=== PATIENT | female | born 1965 | race Caucasian/White ===

== ENCOUNTER 2019-05-30 12:11 | Emergency (ER) | payer MEDICARE, MEDICAID, SELFPAY ==
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
[2019-05-30 12:12] VITALS: BP 137/86; PULSE 84; RESP 16; TEMP 36.5; O2SAT 97; BMI 32.9
[2019-05-30 13:02] LABS: Add Manual Diff / Slide Review NO; Basophils Absolute Auto 100 /uL (0-100); Basophils Percent Auto 0.9 % (0-2); Eosinophils Absolute Auto 200 /uL (0-450); Eosinophils Percent Auto 1.1 % (2-4); Hematocrit 37.6 % (36-46); Hemoglobin 12.1 g/dL (12.0-16.0); Lymphocytes Absolute Auto 3600 /uL (1100-4500); Lymphocytes Percent Auto 24.4 % (25-40); Mean Corpuscular HGB Conc 32.1 % (30-36); Mean Corpuscular Hemoglobin 27.4 PG (26-34); Mean Corpuscular Volume 85.3 fL (80-100); Monocytes Absolute Auto 2000 /uL (0-900); Monocytes Percent Auto 13.7 % (3-14); Neutrophils Absolute Auto 9000 /uL (1500-7000); Neutrophils Percent Auto 59.9 % (50-75); Platelet Count 298 X10^3/uL (150-400); Red Blood Cell Count 4.41 X10^6/uL (4.0-5.2); Red Cell Distribution Width 18.8 % (11.6-14.8)
[2019-05-30 13:12] LABS: Alanine Aminotransferase 18 IU/L (<35); Albumin 4.1 g/dL (3.5-5.0); Albumin Globulin Ratio 1.5 (1.0-2.8); Alkaline Phosphatase 68 U/L (38-126); Aspartate Aminotransferase 29 IU/L (14-36); Bilirubin Total 0.3 mg/dL (0.2-1.3); Blood Urea Nitrogen 15 mg/dL (7-17); Calcium 8.8 mg/dL (8.4-10.2); Carbon Dioxide 27 mmol/L (22-32); Chloride 106 mmol/L (98-107); Estimated Glomerular Filt Rate > 60.0 mL/min (>60); Ethanol (ETOH) < 10 mg/dL; Globulin 2.7 g/dL (1.7-4.1); Glucose 83 mg/dL (70-100); HEMOLYSIS < 15 (0-50); Potassium 3.9 mmol/L (3.4-5.1); Sodium 142 mmol/L (137-145); Total Protein 6.8 g/dL (6.3-8.2)
[2019-05-30 13:24] LABS: Bacteria Urine None Seen
[2019-05-30 13:28] LABS: Appearance Urine UA CLEAR; Bilirubin Urine UA NEGATIVE (NEGATIVE); Color Urine UA YELLOW; Glucose Urine UA NEGATIVE (Negative); Ketones Urine UA NEGATIVE (NEGATIVE); Leukocyte Esterase Urine UA NEGATIVE (NEGATIVE); Nitrite Urine UA NEGATIVE (Negative); Occult Blood Urine UA NEGATIVE (Negative); Protein Urine UA TRACE (Negative); Urobilinogen Urine UA 0.2 E.U./dL (0.2)
[2019-05-30 13:35] LABS: pH Urine UA 6.5 (4.5-8.0)
[2019-05-30 13:36] LABS: UR Morphine/Opiate cutoff 300 Negative (Negative); Ur Creatinine Normal (Normal); Ur Specific Gravity Normal (Normal); Urine Amphetamines Negative (Negative); Urine Barbiturates Negative (Negative); Urine Benzodiazepines Negative (Negative); Urine Cocaine Negative (Negative); Urine MDMA Negative (Negative); Urine Methadone Negative (Negative); Urine Methamphetamines Negative (Negative); Urine Oxycodone Negative (Negative); Urine Phencyclidine Negative (Negative); Urine Tetrahydrocannabinol Negative (Negative); Urine Tricyclic Antidepressant Negative (Negative); Urine pH Normal (Normal)
[2019-05-30 13:40] LABS: RBC Urine 0-1/HPF (0-5/HPF); Squamous Epithelial Cell Urine 1-5 /HPF (0-5/HPF); WBC Urine 0-1/HPF (0-5/HPF)
[2019-05-30 13:41] LABS: Culture Indicated Urine Cult Not Indicated; Mucus Urine 1+ (Negative)
[2019-05-30] MEDS: OLANZapine ODT 10 MG TAB PO (13:44)
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
[2019-05-30 13:48] LABS: Thyroid Stimulating Hormone 4.13 uIU/mL (0.47-4.68)
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
[2019-05-30 14:38] VITALS: BP 90/43; PULSE 90; RESP 16; TEMP 37.1
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
[2019-05-30] MEDS: LORazepam 2 MG/ML INJ 1 MG IM (16:22)
[2019-05-30 18:00] VITALS: BP 97/62; PULSE 68; RESP 15; O2SAT 95
--- NOTE | 2019-05-30 18:50 | PC.NURSE ---
[facility] in [place] called back after reviewing chart and said they will not accept her due to her behavior from her last visit to them
[2019-05-30 18:59] VITALS: BP 116/84; PULSE 69; O2SAT 94
--- NOTE | 2019-05-30 20:33 | PC.NURSE ---
Patient is resting on stretcher with eyes closed. Door is open and she is in direct visualization of nurse's station.
[2019-05-30 21:04] VITALS: BP 101/62; PULSE 66; O2SAT 95
[2019-05-30 22:47] VITALS: BP 99/59; PULSE 66; O2SAT 94
--- NOTE | 2019-05-30 23:14 | PC.NURSE ---
Patient is resting on stretcher with eyes closed. Continuous pulse ox and blood pressure monitoring on. Door is open and patient is in direct visualization of nursing station.
[2019-05-31 00:23] VITALS: BP 113/67; PULSE 67; O2SAT 90
[2019-05-31 02:24] VITALS: BP 107/57; PULSE 73; O2SAT 95
[2019-05-31 03:09] VITALS: BP 105/69; PULSE 66; RESP 15; O2SAT 92
--- NOTE | 2019-05-31 04:33 | PC.NURSE ---
Pt c/o sore bottom, states that she has a cream at home for it. Dr Ritchie at bedside, gluteal cleft with red rash. Skin protectant applied. When asked, pt stated that she still has thoughts of self-harm and if she left the hospital she would light herself on fire. Pt states that she won't hurt herself while in hospital, has been calm, cooperative, sleeping most of the night. quality assurance coordinator phoned to ask for a sitter for dayshift.
[2019-05-31 07:24] VITALS: BP 103/61; PULSE 70; RESP 14; TEMP 36.8; O2SAT 95
[2019-05-31] MEDS: LORazepam 0.5 MG TABLET 1 MG PO (09:13)
[2019-05-31] MEDS: DIVALPROEX DR 250 MG TABLET 750 MG PO ×2 (09:13→20:46)
--- NOTE | 2019-05-31 09:20 | PC.NURSE ---
Addendum entered by Annie Wade R.N. 05/31/19 15:42: Patient up to bedside commode without home care assistant. Patient ambulating in [place], gait is steady and independent. Patient states walking relieves her anxiety and the rash pain on her buttocks. Patient requesting diazepam to relieve her anxiety. Patient is anxious regarding placement and future. Dr. pearson order and medication given. Patient currently resting with her eyes closed. Addendum entered by Annie Wade R.N. 05/31/19 14:27: Margarette, patient's care trainer is sitting in room with patient. Addendum entered by Annie Wade R.N. 05/31/19 12:18: Patient up to bedside commode independently, ambulating in the halls. Patient performed noman care independently, patient recognizes when she is incontinent and requests a brief to change herself. Patient c/o being tired but unable to sleep. Patient verbalizes she is anxious, and would harm herself if the voices told her to do so. Patient is anxious about placement, wants to go somewhere she is safe. Will continue to follow Addendum entered by Annie Wade R.N. 05/31/19 10:32: Patient up to bedside commode. Had loose bowel movement, incontinent of urine in the brief. Brief changed, noman care given. Noted rash on upper crease of buttocks. Barrier cream applied. Patient ambulated in hallway with this nurse. Gait steady, patient states the walk helps ease anxiety. Patient incontinent of stool during walk. Patient changed and back to bed. C/O of headache. Will follow up, refer to MAR. Patient less restless, resting in bed with eyes closed at this time. Original Note: Patient is restless in bed. c/o buttocks hurting, applied cream to excoriated area. Offered patient bedside commode and patient refused. Patient denies pain elsewhere.
[2019-05-31] MEDS: ACETAMINOPHEN 325 MG TABLET 975 MG PO (10:39)
[2019-05-31 11:00] VITALS: BP 100/53; PULSE 73; RESP 18; TEMP 36.6; O2SAT 91
[2019-05-31] MEDS: OLANZapine ODT 10 MG TAB PO ×2 (12:06→20:16)
[2019-05-31] MEDS: ONDANSETRON 4 MG ODT SL (14:24)
[2019-05-31] MEDS: KETOROLAC 60 MG/2 ML VIAL 30 MG IM (14:28)
--- NOTE | 2019-05-31 15:04 | CM.SWNOTE ---
Addendum entered by Marisol Suresh R.N. 05/31/19 19:30: Original Note: VETERINARY ANATOMIST Note continued: Received referral this AM to continue d/c planning on this 53yr female that came to [facility] ED with complaints of suicidal ideation. Spoke with ED staff this AM and they continue to report that patient has complaints of SI. VETERINARY ANATOMIST placed call to [facility]/[place] counselor Adeolaarvind TrinidadHuffman ph# [phone] re: d/c plan. Margarette reports that she will come to [facility] to meet with patient and offer assistance with placement. Reviewed previous VETERINARY ANATOMIST notes. Placed call to [facility] to check on whether or not they can accept. Received return phone call from Subha at [facility] and they report that they cannot accommodate. Other facilities that have declined are [facility] and [facility]. Faxed clinical to [facility] as well have not heard back. Placed call to [facility] ph#[phone] spoke with Kelsey. She reports that they do have female voluntary bed. All clinical faxed. In addition, patient's counselor/Margarette spoke with [facility] re: patient's history. Patient resides at [facility] in [place] they are assisted living. Per Margarette, patient can return there if needed but the preference would be placement secondary to patient's continued SI. ED staff aware and updated. Margarette hopes to get patient moved to AF type setting in the future. Patient has [facility] and CM is [facility]. RN/CM Marisol updated on the above. Currently awaiting call back from [facility] re: acceptance. If patient declined CM team to continue to attempt inpatient psychiatric placement. P: Pending. DYAN Gu VETERINARY ANATOMIST - Paper Gluing Operator Assessment VETERINARY ANATOMIST - Paper Gluing Operator Assessment Start: 05/30/19 14:34 Freq: Status: Active Protocol: Document 05/30/19 14:34 BF (Rec: 05/30/19 14:54 BF [id number]) VETERINARY ANATOMIST/Paper Gluing Operator Assessment Time Spent with Patient Start date 05/30/19 Visit Start Time 13:40 Total time Care Management spent on 300 minutes patient visit-in minutes Mental Health Screening Include Onset, Duration, Intensity Presenting Problem Patient presents to [facility] with suicidal ideation, self harm, no sleep for 4 days Precipitating Event(s) Patient with history of schizophrenia, 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 Current Behavioral Health Provider(s) Patient is enrolled in [facility], Provider, Ph. # Services and has a counselor who meets with her once a week at her residence but cannot think of counselors name at this time. Psych. Hx Mental Health and Chemical SW called A for MIS check Dependency and pt was previously enrolled in [facility] mental health outpt, has a hx of Crisis Respite Bed once in 2017 and a hx of 18 MEDARDO's from 2011-Aug. Pt does not currently have any LRO's or crisis alerts. Pt denies any CD abuse or use. Family Hx of Behavioral Abuse Pt states that her family hasn 't talked to her in 10 yrs Psychiatric Hospitalizations (date(s)/ Pt has a long hx of MEDARDO location) placements from 2011-present with 18 placements for stabilization. Pt's most recent placement was voluntary at [facility] a couple weeks ago in April 2019 before discharging back to her Assisted Living facility and outpt provider through [facility]. Support System(s) Pt states that she has not spoken to her family in 10 years but feels supported by staff at her Assisted Living Facility [facility] in [place] and her assigned SW through the [facility] who is working on getting pt set up with an Adult Family Home to best meet her housing needs in a smaller home life setting. School/Work Denies Legal Concerns Legal Matters - Outstanding Issues Denies Mental Status Orientation (Person/Place/Time) Pt seems to be oriented x2 but states she has been awake for 4 days and is having some difficulty recalling timelines . Affect Pt is quite tearful throughout conversation and appears to be exhausted. 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 Pt states that sometimes they are more quiet and she can manage taking appropriate care for herself and other times they are overwhelming. Thought Processes (Pmlpwja-Tfuwzdau-Thcg Pt appears disorganized in her Ukegsqdr-Exaktwxb-Pisliqbymc- thoughts but able to Egtzlarhuufcse-Etezalz-Tbqyyfznnznc- participate in discussion and Thought Blocking) [facility] has had the most relief for her in managing the voices and remaining safe with sleep. Speech (Pefabj-Mzsa-Rbmeavv-Rapid-Soft- Speech is slow and soft Loud-Pressured) Motor (Atxshm-Xcssqxgfa-Wpxc-Other) Motor appears to be slow Insight (Present-Partially Present- Insight appears to be present Impaired) and pt aware of her safety risk with ongoing voices telling her to be harmful to herself and seeking voluntary in tx Judgement (Intact-Impaired) Intact Impulse Control (Adequate-Impaired) Adequate Memory (Ayjtqsbcx-Lnraxb-Arvghu, Memory is somewhat impaired Impaired-Intact) from lack of sleep Behavior (Appropriate-Inappropriate) Behavior appears to be appropriate and emotional and pt seeking treatment for stabilization and relief of symptoms. Risk Assessment Suicidal Ideation (Plan) Yes Homicidal Ideation (Plan) No: Pt denies that the voices are ever homicidal in nature Comment Pt states that she feels suicidal and has attempted some self harm of burning her skin and taking extra pills at the constant urging of the voices in her head. Pt denies any visual disturbances. Intervention Intervention VETERINARY ANATOMIST met bedside with pt in the ER room 7 and pt was laying down and tearful through the conversation. Pt was able to identify hearing voices that urge self harm and suicidal plans but that she is [facility]. Pt believes that she has been taking her medications consistently but unsure due to her lack of sleep if her voices have kept her from taking meds like they have kept her from eating/drinking/ sleeping the past 4 days. Pt has been able to identify moments when she has been successful at maintaining safely in the community and feels well established with her state Assisted Living Housekeeper and her [facility] counselor she sees once a week. Pt unable to currently plan for safety to return to the community and her living situation. Plan RA Plan Due to pt's ongoing auditory voices that urge self harm and suicidal plans and pt's inability to make a safe plan to return back to the community, pt could benefit [facility] for stabilization and med management of her mental health diagnoses.
[2019-05-31] MEDS: diazePAM 5 MG TABLET PO (15:25)
[2019-05-31 15:47] VITALS: BP 107/48; PULSE 70; RESP 16; TEMP 36.8; O2SAT 91
--- NOTE | 2019-05-31 16:55 | PC.NURSE ---
INDUSTRIAL SEAMSTRESS/SOLID FIBER PASTER OPERATOR Note: Patient complained of buttocks hurting. I applied barrier cream to buttocks. Pt. has sores and some redness on both butt cheeks. AHSAN Estevez Notified.
--- NOTE | 2019-05-31 18:10 | PC.NURSE ---
Patient began vomiting after eating her dinner and so changed her bedding and scrubs
--- NOTE | 2019-05-31 18:12 | CM.SWNOTE ---
Addendum entered by Marisol Suresh R.N. 05/31/19 19:30: [facility] Contacted CM/RN to let us know they can not accept patient. CM/Rn called 2 more times to [facility] and no answer/ phone disconnected messaged. CM will attempt again prior to leaving for the night. CM/RN called and gave [facility] EDs number to f/u with them since CM leaves at 1999. will follow up in the AM with [facility], and [facility] if no bed comes through tonight. CM/ RN contacted [facility] and left a messaged with there charge nurse for possible admission. Charge nurse called CM/RN back and they do not currently have any beds but to call back tomorrow for possible openings if a bed is still needed. CM/Rn will pass on the information. CM/RN updated the ED tracker board that CM/RN was leaving but to contact crisis and dispatch DCR if patient starts causing problems or attempts to leave per [facility] MONTOYA. CM also talked with ED staff and let them know about the calls that were placed and that [facility] knows and will f/u if patient doesn't receive an inpatient bed tonight. Marisol Suresh RN. Addendum entered by Marisol Suresh R.N. 05/31/19 18:28: CM/RN called [facility] at [phone]. They do not currently have a bed available but do have two female beds opening up tomorrow morning and if we still need a bed to call them in the AM. CM/RN will pass on to for tomorrow if CM/RN is not able to find placement tonight before end of shift. Marisol Suresh RN. Original Note: Cm/RN continued to work on voluntary placement for patient. CM called and left two voice messaged with [facility] to see if they will accept patient. CM/RN have not heard back. CM/RN called [facility] to check on clinicals faxed earlier today and check on possible placement. [facility] stated they did not received clinicals today for the patient. CM/RN resent clinicals and called [facility] intake to verify they received them. [facility] received clinicals and are currently reviewing them. CM/RN called [facility] [phone] and they currently have beds. CM/ RN sent clinicals and they are currently reviewing them as well. CM/RN contacted [facility] [phone] and they currently do not have a bed available for the patient. CM/RN will continue to follow closely for placement options. Marisol Suresh RN
--- NOTE | 2019-05-31 18:45 | PC.NURSE ---
pt feels nauseated. vomitted her meal. states she is nervous and anxious and vomits when this happens. md aware. emotional support.
[2019-05-31] MEDS: clonazePAM 0.5 MG TABLET 1 MG PO (18:53)
[2019-05-31] MEDS: TRAZODONE 100 MG TABLET 200 MG PO (20:16)
--- NOTE | 2019-05-31 20:22 | PC.NURSE ---
pt is growing a little agitated, she wants to leave but is able to be re directed, The nurse neeraj walk her through the department.
--- NOTE | 2019-05-31 20:25 | PC.NURSE ---
Pt is walking with a nurse. after asking what the plan was the doctor explain that we are still looking for a bed and she will need to spend the night here again.
--- NOTE | 2019-05-31 20:30 | PC.NURSE ---
Pt requested a shower, Ana is setting it up for her.
--- NOTE | 2019-05-31 20:32 | PC.NURSE ---
Pt is taking a shower
--- NOTE | 2019-05-31 20:32 | PC.NURSE ---
Obtained patient care. Patient pacing in room, tearful about plan of care. Patient requesting night time meds. Another RN assisting with walking the patient around the department to help her calm down during shift change and obtaining report. Marisol from care management was at bedside discussing bed situation with patient prior to that. Patient easily redirectable and calms down with conversation and comfort from staff
--- NOTE | 2019-05-31 20:48 | PC.NURSE ---
Patinet back from shower i love it patient tucked in for the night. lights dimmed.
--- NOTE | 2019-05-31 21:13 | PC.NURSE ---
Pt finished shower and is laying down
--- NOTE | 2019-05-31 22:06 | PC.NURSE ---
Patient sleeping. Resp even and unlabored
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
[2019-06-01 07:43] VITALS: BP 107/73; PULSE 77; RESP 18; TEMP 36.8; O2SAT 93
--- NOTE | 2019-06-01 08:51 | PC.NURSE ---
Addendum entered by Annie Wade R.N. 06/01/19 10:17: Patient transported via stretcher with EMS. Addendum entered by Annie Wade R.N. 06/01/19 09:57: Placement at [facility] confirmed. Patient is tearful with happiness. Patient back to bed awaiting medication. Original Note: Patient sitting at the edge of bed, occasionally stands in doorway or walks out to nurses station. Patient states she is becoming anxious about today's plan. Patient is nervous it will be the same as yesterday, lack of placement is a concern. Reassured patient we are working on placement and maintaining her safety. Walked with patient around nurses station twice, patient is able to dress and ambulate independently. Patient denies pain at this time, only feelings of anxiety. Called [facility] in [place] and spoke to the RN, requested patients medication list to be faxed. Will follow up.
[2019-06-01] MEDS: clonazePAM 0.5 MG TABLET PO (09:46)
[2019-06-01] MEDS: DIVALPROEX ER 250 MG TAB PO (09:46)
[2019-06-01] MEDS: OLANZapine ODT 10 MG TAB 15 MG PO (09:51)
[2019-06-01 09:56] VITALS: BP 118/64; PULSE 71; RESP 16; TEMP 36.9; O2SAT 94
--- NOTE | 2019-06-01 11:53 | CM.SWNOTE ---
PICTURE HANGER Note continued: Patient remained in ED rm#7 throughout the evening. No mental health placement found. PICTURE HANGER received call this AM from Zulay at [facility]. After reviewing all clinical and having phone conversation with patient they have agreed to accept. Admitting physician is Dr. Ivey. RN given number to call report at [phone]. Met with patient this AM and she is aware and agreeable to plan. Left vm with counselor/Margarette. ED DIESEL ENGINE MECHANIC APPRENTICE to coordinate BLS transport. No additional needs identified. Patient remains verbally suicidal and voluntary for placement. P: [facility] today via ambulance. DYAN Gu PICTURE HANGER - Junior Qa Analyst Assessment PICTURE HANGER - Junior Qa Analyst Assessment Start: 05/30/19 14:34 Freq: Status: Discharge Protocol: Document 05/30/19 14:34 BF (Rec: 05/30/19 14:54 BF [id number]) PICTURE HANGER/Junior Qa Analyst Assessment Time Spent with Patient Start date 05/30/19 Visit Start Time 13:40 Total time Care Management spent on 120 min patient visit-in minutes Mental Health Screening Include Onset, Duration, Intensity Presenting Problem Patient presents to [place] [facility] with suicidal ideation, self harm, no sleep for 4 days Precipitating Event(s) Patient with history of schizophrenia, 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 Current Behavioral Health Provider(s) Patient is enrolled in [facility], Provider, Ph. # Services and has a counselor who meets with her once a week at her residence but cannot think of counselors name at this time. Psych. Hx Mental Health and Chemical SW called [facility] for MIS check Dependency and pt was previously enrolled in [facility] for mental health outpt, has a hx of Crisis Respite Bed once in 2017 and a hx of 18 MEDARDO's from 2011-Aug. Pt does not currently have any LRO's or crisis alerts. Pt denies any CD abuse or use. Family Hx of Behavioral Abuse Pt states that her family hasn 't talked to her in 10 yrs Psychiatric Hospitalizations (date(s)/ Pt has a long hx of MEDARDO location) placements from 2011-present with 18 placements for stabilization. Pt's most recent placement was voluntary at [facility] a couple weeks ago in April 2019 before discharging back to her Assisted Living facility and outpt mh provider through [facility]. Support System(s) Pt states that she has not spoken to her family in 10 years but feels supported by staff at her Assisted Living Facility [facility] in [place] and her assigned SW through the state who is working on getting pt set up with an Adult Family Home to best meet her housing needs in a smaller home life setting. School/Work Denies Legal Concerns Legal Matters - Outstanding Issues Denies Mental Status Orientation (Person/Place/Time) Pt seems to be oriented x2 but states she has been awake for 4 days and is having some difficulty recalling timelines . Affect Pt is quite tearful throughout conversation and appears to be exhausted. 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 Pt states that sometimes they are more quiet and she can manage taking appropriate care for herself and other times they are overwhelming. Thought Processes (Lsjqfdm-Sazglocp-Ukym Pt appears disorganized in her Pwopirtl-Iuyetsbc-Ptelzwgfdf- thoughts but able to Qskdyajavudnbo-Rycilqj-Syditwhtycqw- participate in discussion and Thought Blocking) identify that her goal is Inpt MH tx as this has had the most relief for her in managing the voices and remaining safe with sleep. Speech (Lbyydo-Yjeb-Vukwnxh-Rapid-Soft- Speech is slow and soft Loud-Pressured) Motor (Qbtxxm-Rvjvkackg-Jpgn-Other) Motor appears to be slow Insight (Present-Partially Present- Insight appears to be present Impaired) and pt aware of her safety risk with ongoing voices telling her to be harmful to herself and seeking voluntary inpt tx Judgement (Intact-Impaired) Intact Impulse Control (Adequate-Impaired) Adequate Memory (Xkzczzrvx-Qcnwvn-Lvatbl, Memory is somewhat impaired Impaired-Intact) from lack of sleep Behavior (Appropriate-Inappropriate) Behavior appears to be appropriate and emotional and pt seeking treatment for stabilization and relief of symptoms. Risk Assessment Suicidal Ideation (Plan) Yes Homicidal Ideation (Plan) No: Pt denies that the voices are ever homicidal in nature Comment Pt states that she feels suicidal and has attempted some self harm of burning her skin and taking extra pills at the constant urging of the voices in her head. Pt denies any visual disturbances. Intervention Intervention PICTURE HANGER met bedside with pt in the ER room 7 and pt was laying down and tearful through the conversation. Pt was able to identify hearing voices that urge self harm and suicidal plans but that she is voluntarily seeking stabilization at [facility]. Pt believes that she has been taking her medications consistently but unsure due to her lack of sleep if her voices have kept her from taking meds like they have kept her from eating/drinking/ sleeping the past 4 days. Pt has been able to identify moments when she has been successful at maintaining safely in the community and feels well established with her state Masonry Contractor Administrator and her [facility] counselor she sees once a week. Pt unable to currently plan for safety to return to the community and her living situation. Plan RA Plan Due to pt's ongoing auditory voices that urge self harm and suicidal plans and pt's inability to make a safe plan to return back to the community, pt could benefit from [facility] for stabilization and med management of her mental health diagnoses. Document 05/31/19 15:03 KJS (Rec: 05/31/19 15:36 KJS [id number]) PICTURE HANGER/Junior Qa Analyst Assessment Time Spent with Patient Total time Care Management spent on 180 minutes patient visit-in minutes 05/31/19 15:04 CM Masonry Contractor Administrator Note by Unique Suresh Addendum entered by Marisol Suresh R.N. 05/31/19 19:30: Original Note: PICTURE HANGER Note continued: Received referral this AM to continue d/c planning on this 53yr female that came to [facility] ED with complaints of suicidal ideation. Spoke with ED staff this AM and they continue to report that patient has complaints of SI. PICTURE HANGER placed call to [facility] counselor Margarette Huffman ph# [phone] re: d/c plan. Adeolaarvind reports that she will come to [facility] to meet with patient and offer assistance with placement. Reviewed previous PICTURE HANGER notes. Placed call to [facility] to check on whether or not they can accept. Received return phone call from Subha at [facility] and they report that they cannot accommodate. Other facilities that have declined are [facility] and [facility]. Faxed clinical to [facility] as well have not heard back. Placed call to [facility] ph#[phone] spoke with Kelsey. She reports that they do have female voluntary bed. All clinical faxed. In addition, patient's counselor/Margarette spoke with [facility] re: patient's history. Patient resides at [facility] in [place] they are assisted living. Per Margarette, patient can return there if needed but the preference would be placement secondary to patient's continued SI. ED staff aware and updated. Margarette hopes to get patient moved to [facility] type setting in the future. Patient has [facility]OK[facility] and CM is James Kemp. RN/CM Marisol updated on the above. Currently awaiting call back from [facility] re: acceptance. If patient declined CM team to continue to attempt inpatient psychiatric placement. P: Pending. DYAN Gu PICTURE HANGER - Junior Qa Analyst Assessment PICTURE HANGER - Junior Qa Analyst Assessment Start: 05/30/19 14:34 Freq: Status: Active Protocol: Document 05/30/19 14:34 BF (Rec: 05/30/19 14:54 BF [id number]) PICTURE HANGER/Junior Qa Analyst Assessment Time Spent with Patient Start date 05/30/19 Visit Start Time 13:40 Total time Care Management spent on 360 minutes patient visit-in minutes Mental Health Screening Include Onset, Duration, Intensity Presenting Problem Patient presents to [place] ER with suicidal ideation, self harm, no sleep for 4 days Precipitating Event(s) Patient with history of schizophrenia, 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 Current Behavioral Health Provider(s) Patient is enrolled in [facility], Provider, Ph. # Services and has a counselor who meets with her once a week at her residence but cannot think of counselors name at this time. Psych. Hx Mental Health and Chemical SW called [facility] for MIS check Dependency and pt was previously enrolled in [facility] for mental health outpt, has a hx of Crisis Respite Bed once in 2017 and a hx of 18 MEDARDO's from 2011-Aug. Pt does not currently have any LRO's or crisis alerts. Pt denies any CD abuse or use. Family Hx of Behavioral Abuse Pt states that her family hasn 't talked to her in 10 yrs Psychiatric Hospitalizations (date(s)/ Pt has a long hx of MEDARDO location) placements from 2012-present with 18 placements for stabilization. Pt's most recent placement was voluntary at [facility] a couple weeks ago in April 2019 before discharging back to her Assisted Living facility and outpt mh provider through [facility]. Support System(s) Pt states that she has not spoken to her family in 10 years but feels supported by staff at her Assisted Living Facility [facility] in [place] and her assigned SW through the [facility] who is working on getting pt set up with an Adult Family Home to best meet her housing needs in a smaller home life setting. School/Work Denies Legal Concerns Legal Matters - Outstanding Issues Denies Mental Status Orientation (Person/Place/Time) Pt seems to be oriented x2 but states she has been awake for 4 days and is having some difficulty recalling timelines . Affect Pt is quite tearful throughout conversation and appears to be exhausted. 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 Pt states that sometimes they are more quiet and she can manage taking appropriate care for herself and other times they are overwhelming. Thought Processes (Kslxswl-Lkvhxuzn-Taag Pt appears disorganized in her Pmmplycd-Vjbazfkr-Xjwteurajh- thoughts but able to Eaoidopjkdvzgr-Mnejdku-Pbdiogvqezvt- participate in discussion and Thought Blocking) identify that her goal is Inpt MH tx as this has had the most relief for her in managing the voices and remaining safe with sleep. Speech (Pabits-Aoll-Irqtdhq-Rapid-Soft- Speech is slow and soft Loud-Pressured) Motor (Xmqilc-Lytyrqftd-Hbls-Other) Motor appears to be slow Insight (Present-Partially Present- Insight appears to be present Impaired) and pt aware of her safety risk with ongoing voices telling her to be harmful to herself and seeking voluntary inpt tx Judgement (Intact-Impaired) Intact Impulse Control (Adequate-Impaired) Adequate Memory (Clxvfhbhg-Keoznx-Wwgpvy, Memory is somewhat impaired Impaired-Intact) from lack of sleep Behavior (Appropriate-Inappropriate) Behavior appears to be appropriate and emotional and pt seeking treatment for stabilization and relief of symptoms. Risk Assessment Suicidal Ideation (Plan) Yes Homicidal Ideation (Plan) No: Pt denies that the voices are ever homicidal in nature Comment Pt states that she feels suicidal and has attempted some self harm of burning her skin and taking extra pills at the constant urging of the voices in her head. Pt denies any visual disturbances. Intervention Intervention PICTURE HANGER met bedside with pt in the ER room 7 and pt was laying down and tearful through the conversation. Pt was able to identify hearing voices that urge self harm and suicidal plans but that she is voluntarily seeking stabilization at [facility]. Pt believes that she has been taking her medications consistently but unsure due to her lack of sleep if her voices have kept her from taking meds like they have kept her from eating/drinking/ sleeping the past 4 days. Pt has been able to identify moments when she has been successful at maintaining safely in the community and feels well established with her state Masonry Contractor Administrator and her [facility] counselor she sees once a week. Pt unable to currently plan for safety to return to the community and her living situation. Plan RA Plan Due to pt's ongoing auditory voices that urge self harm and suicidal plans and pt's inability to make a safe plan to return back to the community, pt could benefit from [facility] for stabilization and med management of her mental health diagnoses. Initialized on 05/31/19 15:04 - END OF NOTE
[2019-06-03 13:18] LABS: Valproic Acid (Depakene) Total 22.3 mg/L (50.0-100.0)
== END 2019-06-01 11:00 ==
PROVIDERS: Emergency Medicine; Nurse Practitioner; Emergency Provider Emergency Medicine
DX: R45.851 Suicidal ideations (principal)
CPT/HCPCS: 36415; 80053; 80164; 80305; 80320; 81001; 84443; 85025; 96372; 99285; J1885; J2060